=== PATIENT | female | born 1995 | race American Indian/Alaskan Native ===

== ENCOUNTER 2018-12-11 10:31 | Outpatient (CLI) | payer MEDICAID ==
[2018-12-11] MEDS ORDERED: LACTATED RINGERS 500 ML IV ONE (12:03)
[2018-12-11] MEDS ORDERED: LACTATED RINGERS 1,000 ML IV ONE ×2 (12:33→13:48)
[2018-12-11 12:42] LABS: Bilirubin,Urine NEG (Negative); Blood,Urine NEG (Negative); Color,Urine Yellow (Yellow); Mucus,Urine FEW /HPF; Protein,Urine <15 mg/dL mg/dL (Negative); Urobilinogen,Urine < 2.0 mg/dL (<2.0)
--- NOTE | 2018-12-11 13:18 | Ultrasound Report ---
ULTRASOUND OBSTETRIC LIMITED ULTRASOUND BIOPHYSICAL PROFILE INDICATION / CLINICAL INFORMATION: well being. Status post fall. COMPARISON: None available. FINDINGS: BREATHING MOVEMENT = 2 GROSS BODY MOVEMENT = 2 TONE = 2 QUALITATIVE AMNIOTIC FLUID VOLUME = 2 TOTAL BIOPHYSICAL SCORE = 8/8 AMNIOTIC FLUID INDEX (cm) = 7.1 PRESENTATION: Cephalic. HEART RATE (beats per minute): 152 ADDITIONAL FINDINGS: Cephalic presentation. Placenta appears anterior and free of the os. IMPRESSION: 1. Biophysical Score = 8/8 2. No acute sonographic abnormality. Signer Name: Zahida Manzanares MD Signed: 12/11/2018 1:14 PM Workstation Name: [id number]
[2018-12-11 15:10] VITALS: BP 105/64
[2018-12-11] MEDS ORDERED: TERBUTALINE 1 MG/1 ML INJ SUB-Q ONE (15:30)
== END 2018-12-11 16:45 | disposition home or self-care (01) ==
LOC: TRG 10:31
PROVIDERS: ATTEND Obstetrics & Gynecology
DX: O26.893 Other specified pregnancy related conditions, third trimester (principal); R10.31 Right lower quadrant pain; Z3A.32 32 weeks gestation of pregnancy; W19.XXXA Unspecified fall, initial encounter; Y93.89 Activity, other specified; Y92.9 Unspecified place or not applicable; Y99.8 Other external cause status
CPT/HCPCS: 59025; 76815; 76819; 81001; 96360; 96361; 96372; J3105; J7120